=== PATIENT | male | born 1975 | race Caucasian/White ===

== ENCOUNTER → 2018-09-09 | Outpatient (CLI) | payer BC ==
--- NOTE | 2018-09-09 15:46 | XR ---
EXAMINATION TYPE: XR chest 2V DATE OF EXAM: 09/09/2018 COMPARISON: NONE HISTORY: Back pain TECHNIQUE: Frontal and lateral views of the chest are obtained. FINDINGS: There is no focal air space opacity, pleural effusion, or pneumothorax seen. The cardiac silhouette size is within normal limits. The osseous structures are intact. IMPRESSION: No acute cardiopulmonary process.
--- NOTE | 2018-09-09 15:48 | XR ---
Lumbosacral spine HISTORY: Left flank pain 5 views of the lumbosacral spine There is no evident spondylolysis or spondylolisthesis. Only 4 nonrib-bearing lumbar segments are pre sent. Some loss of disc height at the lumbosacral junction is compatible with degenerative disc disea se, there is multilevel spondylosis. Sclerosis present in the posterior elements of the lower lumbar spine. There is mild spinal curvature. IMPRESSION: Degenerative disc disease and facet arthropathy. 4 nonrib-bearing lumbar segments.
--- NOTE | 2018-09-09 15:51 | XR ---
Thoracic spine HISTORY: Back pain, left flank pain 2 views of the thoracic spine Thoracic vertebral bodies show preserved height, alignment, and bone mineralization. Disc spaces are maintained. There is no paraspinal mass. IMPRESSION: Normal thoracic spine.
== END | disposition home or self-care (01) ==
LOC: RADXRYALE 13:09
PROVIDERS: ATTEND Internal Medicine
DX: M51.37 Other intervertebral disc degeneration, lumbosacral region (principal); M46.97 Unspecified inflammatory spondylopathy, lumbosacral region
CPT/HCPCS: 71046; 72070; 72110

== ENCOUNTER → 2020-01-22 | Outpatient (CLI) | payer BC ==
[2020-01-22 09:34] LABS: Basophils % (A) 1 %; Eosinophils # (A) 0.2 k/uL (0-0.7); Eosinophils % (A) 3 %; HCT 50.2 % (39.0-53.0); HGB 16.3 gm/dL (13.0-17.5); Lymphocytes # (A) 2.9 k/uL (1.0-4.8); Lymphocytes % (A) 40 %; MCH 29.4 pg (25.0-35.0); MCHC 32.4 g/dL (31.0-37.0); MCV 90.7 fL (80.0-100.0); Mean Platelet Volume 7.2; Monocytes # (A) 0.6 k/uL (0-1.0); Monocytes % (A) 8 %; Neutrophils # (A) 3.5 k/uL (1.3-7.7); Neutrophils % (A) 47 %; Platelet Count 228 k/uL (150-450); RBC 5.53 m/uL (4.30-5.90); WBC 7.4 k/uL (3.8-10.6)
[2020-01-22 17:49] LABS: African American GFR (CKD) 94.1 (60.0-200.0); Albumin 4.4 g/dL (3.80-4.90); Albumin/Globulin Ratio 1.57 (1.60-3.17); Anion Gap 8.1 mmol/L (4.00-12.00); BUN/Creat Ratio 14.55 Ratio (12.00-20.00); Calcium 9.5 mg/dL (8.7-10.3); Carbon Dioxide 28.9 mmol/L (21.6-31.8); Chol/HDL Ratio 4.76; Globulin 2.8 g/dL (1.6-3.3); LDL Cholesterol,Calculated 140.4 mg/dL (0.0-131.0); Non-African American GFR(CKD) 81.2 (60.0-200.0); Potassium 4.7 mmol/L (3.5-5.5); Total Protein 7.2 g/dL (6.2-8.2); VLDL Calculation 28.6 mg/dL (5.00-40.00)
== END | disposition home or self-care (01) ==
LOC: LABWHC1 07:32
PROVIDERS: ATTEND Nurse Practitioner Family
DX: Z13.1 Encounter for screening for diabetes mellitus (principal); E53.8 Deficiency of other specified B group vitamins; E78.5 Hyperlipidemia, unspecified; R53.82 Chronic fatigue, unspecified; Z13.0 Encounter for screening for diseases of the blood and blood-forming organs and certain disorders involving the immune mechanism; E55.9 Vitamin D deficiency, unspecified
CPT/HCPCS: 36415; 80053; 80061; 82306; 82607; 84443; 85025